=== PATIENT | male | born 1990 | race Caucasian/White ===

== ENCOUNTER 2020-06-25 11:08 | Emergency (ER) | payer SELFPAY ==
[2020-06-25 11:30] VITALS: PULSE 96; RESP 18; TEMP 36; O2SAT 98; BMI 39.5
[2020-06-25] MEDS: dexamethasone 4 mg/mL INJ 10 MG IM (12:29)
[2020-06-25] MEDS: ketorolac 30 mg/mL INJ IM (12:30)
[2020-06-25] MEDS: morphine 4 mg/mL SDV 1 mL 10 MG IM (12:30)
[2020-06-25 12:40] VITALS: BP 179/109; PULSE 88; RESP 18; O2SAT 98
[2020-06-25 13:40] VITALS: BP 177/116; PULSE 88; RESP 18; O2SAT 98
[2020-06-25] MEDS: hydroCHLOROthiazide 25 mg Tablet PO (14:31)
[2020-06-25 14:32] VITALS: BP 177/116; PULSE 88; RESP 18; O2SAT 98
--- NOTE | 2020-06-25 16:31 | DCPLANNER ---
manager military was asked to schedule a follow up appointment for patient with primary care, manager financial reporting and follow up with Dr. Osborne. manager military spoke with patient, he stated that he would like a primary care physician. manager military called [facility], spoke with Jayne, a follow up appointment was scheduled for June 30, 2020 at 8:[address] Velarde. manager military gave patient the appointment information. manager military gave patient both of the manager financial reporting applications for the hospital to fill out and turn back in. manager military called the ortho clinic, spoke with Cyndy, gave clinic patients information. manager military was told that patients information would be printed and reviewed. Clinic will call patient with appointment information.
--- NOTE | 2020-06-25 21:20 | ED_ITS ---
HPI - Back Pain/Injury General: Chief Complaint: Back Pain/Injury Stated Complaint: high bp and lower back pain Time Seen by Provider: 06/25/20 11:34 History of Present Illness: HPI Narrative: This patient is a 30-year-old male who presents with back pain. He said he was bent over at work yesterday and his back locked up. He has been having severe pain since then. It radiates down both legs. He has no numbness or weakness. No bladder or bowel incontinence. He is also concerned about his blood pressure which is elevated. He said he has been told he has high blood pressure but he is not a pill person and so did not take anything. He is also concerned because he does not have insurance to follow-up with any doctors. He showed me an MRI that he had 2 years ago. This showed some disc bulging and herniation at various levels including L4-5. MD elicited complaint: back pain Pertinent past history: prior back pain Onset (ago): day(s) (1) Timing: constant Severity: similar to previous episodes Similar Symptoms Previously: Yes Quality: dull and aching Location: lumbar spine Radiation: other (Bilateral legs) Exacerbating factors: movement Relieving factors: none Associated symptoms: Reports no associated symptoms; Deny abdominal pain, chills, fatigue, fever(s), nausea or vomiting Review of Systems General: Reports: 10 or more systems reviewed and unremarkable except in HPI and below Const: Denies: fever(s), chills, fatigue or malaise Eyes: Denies: change in vision ENMT: Denies: odynophagia Card: Denies: chest pain or swelling of feet/ankles Resp: Denies: dyspnea, productive cough or non-productive cough GI: Denies: abdominal pain, nausea or vomiting : Denies: flank pain Musc: Denies: neck pain or back pain Skin/Breast: Denies: rash Neuro: Denies: headache(s), numbness in extremities or weakness in extremities Gaetano/Lymph: Denies: easy bruising or easy bleeding Physical Exam Const: COMMON NORMALS: no acute distress, patient oriented x3, no limitations and alert GENERAL APPEARANCE: cooperative and comfortable HENMT: HEAD & SCALP: normal to inspection FACE & SINUS: normal facial exam Eye: GENERAL EYE: appearance normal, both eyes and all related structures Neck/C-Spine: COMMON NORMALS: supple, no meningeal signs and no JVD Chest: COMMONS NORMALS: normal inspection of the chest Resp: COMMON NORMALS: normal respiratory effort, No use of accessory muscles and clear to auscultation bilaterally AUSCULTATION: clear to auscultation bilaterally Cardio: COMMON NORMALS: no JVD, regular rate, regular rhythm and No murmurs present (Cardio) RATE: regular rate RHYTHM: regular rhythm GI: COMMON NORMALS: Normal to inspection, nondistended, normoactive bowel sounds present, Soft to palpation and non-tender INSPECTION: Yes normal to inspection AUSCULTATION: Yes normoactive bowel sounds PALPATION: Yes Soft to palpation Back/Pelvis: COMMON NORMALS: thoracic and lumbar spine normal to inspection Extremity: COMMON NORMALS: normal to inspection Neuro: COMMON NORMALS: patient oriented x3, moves all extremities, no focal motor deficits and no sensory deficits noted SENSORIUM/ORIENTATION: Yes alert and Yes other (Negative straight leg raise bilaterally) MENINGEAL SIGNS: Yes no meningeal signs SENSORY EXAM: Yes other (Normal) MOTOR EXAM: 5/5 motor strength present throughout DEEP TENDON REFLEXES: Right patellar reflex intensity grade: 2+ and Left patellar reflex intensity grade: 2+ Psych: COMMON NORMALS: mental status grossly normal, cooperative and normal affect Skin: COMMON NORMALS: no rashes or lesions noted and turgor normal GENERAL SKIN EXAM: no rashes or lesions noted and turgor normal Course ED course: Patient was treated for his back pain with morphine, Toradol, Decadron. Sent him home on hydrocodone and methylprednisolone Dosepak. I also put him on hydrochlorothiazide for high blood pressure. I have had our family caseworker talk with him about assistance with financial concerns, follow-up with primary care and follow-up with Dr. Osborne, orthospine. Patient was anxious about his elevated blood pressure and I reassured him that in the short-term I felt it was fine. We did discuss the long-term effects of uncontrolled blood pressure. He was given a work note. Vital Signs: Vital signs: Vital Signs Temperature 96.8 F L 06/25/20 11:30 Pulse Rate 88 06/25/20 14:32 Respiratory Rate 18 06/25/20 14:32 Blood Pressure 177/116 06/25/20 14:32 Pulse Oximetry 98 06/25/20 14:32 Discharge Plan Discharge Patient Disposition: Home Clinical Impression: Lumbar radiculopathy Hypertension Qualifiers: Hypertension type: unspecified Qualified Code(s): I10 - Essential (primary) hypertension Condition: Stable Prescriptions: New hydrochlorothiazide 25 mg tablet 25 mg PO DAILY Qty: 30 RF: 0 Medrol (Jim) 4 mg tablets,dose pack See Rx Instructions .ROUTE .COMPLEX Qty: 21 RF: 0 hydrocodone-acetaminophen 5-325 mg tablet 1 tab PO Q4H PRN (Reason: pain) Qty: 14 RF: 0 Discharge Orders: Discharge Order (Routine); Ordered 06/25/20 Ordered By: Valeria Lynch Referrals: Jessee Osborne DO [Physician] - (back pain, history of disc herniation) Discharge Diet: Usual diet Discharge Activity: Limit activity as instructed Patient Instructions: Chronic Hypertension (ED), Acute Low Back Pain (ED) Activity Restrictions/Additional Instructions: Return to the ED if uncontrolled pain, weakness or numbness in the legs, difficulty controlling bladder or bowel, or any other new or concerning symptoms. Coding Level of Care Code ED Wrecker Operator for Jose Luis Whittaker
--- NOTE | 2020-06-30 11:03 | DCPLANNER ---
Patient had a follow up appointment scheduled for 06.30.20 with [facility] - patient did attend appointment.
--- NOTE | 2020-07-07 09:33 | DCPLANNER ---
Patient has a follow up appointment for patient with ortho on Monday, July 13, 2020 at 10:[address] Osborne. Clinic will call patient with appointment information.
--- NOTE | 2020-07-20 15:15 | DCPLANNER ---
Patient had a follow up appointment scheduled f or 07.13.20 with ortho - patient did attend appointment.
== END 2020-06-25 14:32 | disposition home or self-care (01) ==
PROVIDERS: Emergency Provider Emergency Medicine
DX: M54.16 Radiculopathy, lumbar region (principal); I10 Essential (primary) hypertension
CPT/HCPCS: 12345; 96372; 99281; 99283; J1100; J1885; J2270

== ENCOUNTER → 2020-07-13 10:11 | Outpatient (BNVA) | payer SELFPAY | PROVIDERS: Visit Provider Orthopaedic Surgery | DX: M48.061 Spinal stenosis, lumbar region without neurogenic claudication (principal) | CPT/HCPCS: 72050; 72072; 72114 ==

== ENCOUNTER → 2020-07-14 09:51 | Outpatient (BNVA) | payer SELFPAY | PROVIDERS: PCP Family Medicine Adult Medicine; Visit Provider Family Medicine Adult Medicine | DX: I10 Essential (primary) hypertension (principal); E66.9 Obesity, unspecified | CPT/HCPCS: 80053; 83036; 84443; 85025 ==

== ENCOUNTER 2020-07-22 15:55 | Outpatient (CLI) | payer SELFPAY ==
--- NOTE | 2020-07-22 16:00 | MR_ITS ---
WS: [id number] MRI CERVICAL SPINE HISTORY: R52 - Pain, unspecified COMPARISON: None available. Normal cervical alignment with no compression fracture or significant disc space narrowing. Signal within the cervical cord is normal. Visualized posterior fossa is unremarkable. Craniocervical junction, C1 and C2 relationship, odontoid process and soft tissues are normal. C2-C3: Small vertebral body osteophytes encroach into the LEFT foramen with only minimal narrowing. C3-C4: Mild annular disc bulging and osteophytic ridging without stenosis. C4-C5: Mild annular disc bulging and osteophytic ridging with a very small central disc protrusion. N o stenosis. C5-C6: Mild annular disc bulging and osteophytic ridging. There is a very tiny central disc protrusio n extending slightly to the RIGHT. No significant stenosis. C6-C7: Mild osteophytic ridging. No significant stenosis. C7-T1: Mild osteophytic ridging. No stenosis. Paraspinal soft tissue are normal. MR/MR cervical spin wo con* [id number] IMPRESSION: 1. No significant central or foraminal stenosis. 2. Multilevel small vertebral body osteophytes encroaching into the foramen. N o high-grade stenosis.
--- NOTE | 2020-07-22 16:45 | MR_ITS ---
WS: [id number] MRI LUMBAR SPINE NONCONTRAST HISTORY: M48.061 - Spinal stenosis, lumbar region without neurogenic claudication COMPARISON: None available. TECHNIQUE: Sagittal and axial multisequence imaging is submitted. Mild increase in thoracic kyphosis centered at the T5-6 level. All the anterior wedging of T6. Mild straightening of the normal lumbar vertebral bodies. Disc spaces and vertebral body heights are well-preserved. Conus terminates normally at mid L1. L1-L2: Normal. L2-L3: Normal. L3-L4: Normal. L4-L5: Small amount of fluid in the facet joints. No stenosis. L5-S1: Small amount of fluid in the facet joints. No stenosis. Paravertebral soft tissues are negative. MR/MR lumbar spine wo con* [id number] IMPRESSION: 1. No significant central or foraminal stenosis or disc protrusions in the lum bar spine. 2. Small amount of fluid in the facet joints at L4-5 and L5-S1.
== END 2020-07-22 15:56 | disposition home or self-care (01) ==
LOC: RADSHAW 15:58
PROVIDERS: PCP Family Medicine Adult Medicine; Visit Provider Orthopaedic Surgery
DX: M54.2 Cervicalgia (principal); M48.061 Spinal stenosis, lumbar region without neurogenic claudication
CPT/HCPCS: 72141; 72148

== ENCOUNTER → 2020-08-26 08:35 | Outpatient (BNVA) | payer SELFPAY | PROVIDERS: PCP Family Medicine Adult Medicine; Visit Provider Anesthesiology Pain Medicine | DX: M47.816 Spondylosis without myelopathy or radiculopathy, lumbar region (principal); M54.9 Dorsalgia, unspecified; M50.90 Cervical disc disorder, unspecified, unspecified cervical region; M54.6 Pain in thoracic spine | CPT/HCPCS: 99205 ==

== ENCOUNTER → 2020-08-27 12:36 | Outpatient (BNVA) | payer SELFPAY | PROVIDERS: PCP Family Medicine Adult Medicine; Visit Provider Anesthesiology Pain Medicine | DX: M47.816 Spondylosis without myelopathy or radiculopathy, lumbar region (principal); M54.9 Dorsalgia, unspecified | CPT/HCPCS: 64493; 64494; 64495; J1030; J3490 ==

== ENCOUNTER 2020-12-08 20:00 | Outpatient (CLI) | payer SELFPAY | END 2020-12-08 20:01 | disposition home or self-care (01) | LOC: SLEEP 12-09 09:56 | PROVIDERS: PCP Family Medicine Adult Medicine; Visit Provider Family Medicine Adult Medicine | DX: G47.33 Obstructive sleep apnea (adult) (pediatric) (principal); Z99.89 Dependence on other enabling machines and devices; E66.9 Obesity, unspecified | CPT/HCPCS: 95811 ==

== ENCOUNTER → 2021-03-02 11:55 | Outpatient (BNVA) | payer MEDICAID, SELFPAY | PROVIDERS: PCP Family Medicine Adult Medicine; Referring Provider Family Medicine Adult Medicine; Visit Provider Internal Medicine Cardiovascular Disease | DX: N18.9 Chronic kidney disease, unspecified (principal); R06.02 Shortness of breath; R06.00 Dyspnea, unspecified | CPT/HCPCS: 80048; 84443 ==

== ENCOUNTER 2021-03-30 07:58 | Outpatient (CLI) | payer MEDICAID, SELFPAY ==
--- NOTE | 2021-03-30 08:05 | USCV_ITS ---
[facility] Age: 30 Gender: M : 1990 Exam Date: 03/30/2021 08:31 Ordering Phys: Rachel Butler MD ([email or web address]) Technologist: Lilly Silverio Exam Location: [facility] – [place] Indication: DYSPNEA BP: 170 / 80 HR: 76 Rhythm: Sinus Technical Quality: Adequate MEASUREMENTS (Male / Female) Normal Values 2D ECHO LV Diastolic Diameter PLAX 4.9 cm 4.2 - 5.9 / 3.9 - 5.3 cm LV Systolic Diameter PLAX 2.7 cm IVS Diastolic Thickness 2.1 cm 0.6 - 1.0 / 0.6 - 0.9 cm IVS Systolic Thickness 2.9 cm LVPW Diastolic Thickness 1.9 cm 0.6 - 1.0 / 0.6 - 0.9 cm LVPW Systolic Thickness 2.8 cm LVOT Diameter 2.0 cm LV Ejection Fraction 2D Teich 74.9 % LV Ejection Fraction MOD 2C 64.5 % LV Ejection Fraction 2C AL 66.1 % LA Diameter 4.7 cm LA Width 4.5 cm LA Height 6.0 cm RA Width 3.5 cm RA Height 5.8 cm Aorta at Sinotubular Diameter 2.5 cm DOPPLER AV Peak Velocity 149.0 cm/s LVOT Peak Velocity 80.0 cm/s AV Area Cont Eq vti 1.7 cm squared AV Area Cont Eq pk 1.7 cm squared MV Area PHT 4.2 cm squared Mitral E to A Ratio 1.3 MV E' Velocity 56.0 cm/s Mitral E to MV E' Ratio 13.2 Mitral E to LV E' Lateral Ratio 13.0 Mitral E to LV E' Septal Ratio 13.4 TR Peak Velocity 418.0 cm/s TR Peak Gradient 69.9 mmHg TV Peak E Velocity 67.0 cm/s PV Peak Velocity 100.0 cm/s RV Acceleration Time 0.1 s RV Ejection Time 0.3 s RV AcT/ET 0.4 FINDINGS Left Ventricle Normal left ventricular size and systolic function, EF 72 %. Moderate left ventricular hypertrophy. No regional wall motion abnormalities. Right Ventricle The right ventricle is normal in size and function. Right Atrium The right atrium is normal in size. Left Atrium Mildly increased left atrial size. Mitral Valve No gross abnormalities noted Aortic Valve Mild aortic valve regurgitation. Tricuspid Valve Trace tricuspid valve regurgitation. Pulmonic Valve Pulmonic valve not well visualized. Pericardium Normal pericardium without effusion. Aorta Normal ascending aorta dimension. CONCLUSIONS Normal left ventricular size and systolic function, EF 72 %. Moderate left ventricular hypertrophy. No regional wall motion abnormalities. Type III diastolic dysfunction. Mild aortic valve regurgitation. Trace tricuspid valve regurgitation. There is no pericardial effusion. There are no intracardiac masses. Technically difficult study because of the poor ultrasonic window. Dr Rachel Butler MD FACC (Electronically Signed) Final Date: 30 March 2021 23:05 S
== END 2021-03-30 07:59 | disposition home or self-care (01) ==
PROVIDERS: PCP Family Medicine Adult Medicine; Visit Provider Internal Medicine Cardiovascular Disease
DX: R06.00 Dyspnea, unspecified (principal); I08.2 Rheumatic disorders of both aortic and tricuspid valves
CPT/HCPCS: 93306

== ENCOUNTER → 2021-04-07 15:20 | Outpatient (BNVA) | payer MEDICAID, SELFPAY | PROVIDERS: PCP Family Medicine Adult Medicine; Visit Provider Orthopaedic Surgery | DX: Z20.822 Contact with and (suspected) exposure to COVID-19 (principal); Z01.812 Encounter for preprocedural laboratory examination | CPT/HCPCS: 87635 ==

== ENCOUNTER 2021-04-13 05:44 | Day surgery (SDC) | payer MEDICAID, SELFPAY ==
[2021-04-06 11:08] VITALS: BMI 38.5
--- NOTE | 2021-04-06 12:18 | ANES.PREANE2 ---
Pre-Anesthetic Assessment Pre-Anesthetic Assessment: Height/Weight: Height 1.88 m Weight 136.078 kg Preop Diagnosis: lumbar stenosis Proposed Procedure: Operation Date: 04/13/21 13:15 Proposed Procedures p 35895 lumbar decompression M48.062(Not Applicable) - Jessee Osborne, DO Was Beta Daysi taken within 24 hours: N/A Was Clonidine taken within 24 hours: N/A Social: Social History: No alcohol and No tobacco Airway: Submandibular: WNL Cervical ROM: WNL MP: 1 Dentition: Full History/ROS: No significant complaints Pulmonary: Pulmonary: None reported CV/HEM: CV/HEM: HTN : : None reported Hepatic: Hepatic: None reported GI: GI: None reported Metabolic: Metabolic: None reported Musc/skel: Musc/skel: None reported Neuropsych: Neuropsych: None reported Anesthetic Plan: ASA status: 2 Anesthesia: Anesthesia Evaluation and General Risk of > 500 ml blood loss (7ml/kg in children): No PFSH Anesthesia PFSH: Medical History Abnormal EKG Atypical chest pain Cervical disc disease Chronic neck and back pain Fever Herniated disc History of seizures Hypertension Obesity (BMI 35.0-39.9 without comorbidity) AURY on CPAP Surgical History No history of previous surgery Family History Other No pertinent family history Denies family history of Diabetes CAD (coronary artery disease) Clotting disorder Dementia Chronic kidney disease (CKD) Suicide Anesthesia complication Bleeding disorder Lung disease Cancer Stroke Social History Alcohol intake: never Marital status: Number of children: 3 Current occupational status: unemployed and previously employed History of recent travel: No Current gender identity: Male Data Anesthesia Cardiac Studies: Echocardiogram 03/30/21
[2021-04-13] VITALS (10 sets, daily range): BP systolic 133–182; BP diastolic 79–98; PULSE 53–69; RESP 14–19; TEMP 36.2–36.7; O2SAT 94–100
--- NOTE | 2021-04-13 | XR_ITS ---
WS: [id number] Lumbar spine, C-arm fluoroscopy, 04/13/2021 Clinical Data: lumbar decompression Comparison: None. Findings: Dr. Osborne performed a lumbar decompression at L4-L5. XR/XR lumbar spine 1V [id number] Impression: L4-L5 decompression.
--- NOTE | 2021-04-13 | SCC_ITS ---
Procedure Done: Bilateral L4/5 laminectomy with partail facetectomy 8.7 seconds of fluoroscopic guidance, for a cumulative dose of 4.96 mGy, was provided to Dr. Osborne by the radiology department. C-arm images of the lumbar spine were saved for the patient's permanent record. [facility]ITAL[facility]ox[facility]
[2021-04-13] MEDS: sodium chloride 0.9% 1,000 ML 30 ML IV (06:21)
--- NOTE | 2021-04-13 06:26 | P.ANESUD_ITS ---
Pre-Anesthetic Update Pre-Anesthetic Assessment: Date of Surgery/Procedure: 04/13/21 Preop Lorelei gnosis: lumbar stenosis Proposed Procedure: Operation Date: 04/13/21 07:00 Proposed Procedures p [id number] lumbar decompression M48.062(Not Applicable) - Jessee Osborne, DO Any changes to Pre-Anesthetic Assessment?: No Last Intake: Intake Last Liquid Date 04/12/21 Last Liquid Time 23:59 Last Solid Date 04/12/21 Last Solid Time 19:00 Vitals: Temperature 97.1 F L 04/13/21 06:08 Temperature Source Temporal Artery S can 04/13/21 06:08 Pulse Rate 65 04/13/21 06:08 Respiratory Rate 16 04/13/21 06:08 Blood Pressure 133/98 04/13/21 06:08 Blood Pressure Tamara n 109 04/13/21 06:08 Pulse Oximetry 97 04/13/21 06:08 Oxygen Delivery Me thod 04/13/21 06:08 Exam: Pre-Anes Outpt Exam: alert, oriented x 3, clear to auscultation bilaterally and regular rate & rhythm Other Pertinent Information: Other Pertinent Information: Did not bring his biPap with him. Also states family hx of high tolerance to anesthesia. Cardiac Studies: Echocardiogram 03/30/21
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
--- NOTE | 2021-04-13 08:15 | PM.OP ---
Operative Report Date of procedure: April 13, 2021 Pre-op Diagnosis: lumbar stenosis Post-op diagnosis: same Procedure Done: Bilateral L4/5 laminectomy with partail facetectomy Surgeon: Jessee Osborne Anesthesia: General Estimated blood loss (mL): 5 Condition: stable Procedure: Patient is brought to the operative suite. After undergoing anesthesia they are placed in the supine position. All areas of impingement are well padded. Patient is then prepped and draped in the normal sterile fashion. A skin incision is made over the L4/5 level. This is confirmed under c-arm guidance. A series of dilators are passed and the tubular retractor is docked on the L4 lamina. A bovie is used to clear the soft tissue off the lamina and the L 4/5 facet joint. A high speed dee is then used to perform the laminectomy and take down the medial aspect of the L 4/5 facet joint. A kerrison rongeure was then used to take down the remaining lamina and smooth the edged of the laminectomy up to the point where the ligamentum flavum attaches. Attention was then brought to the medial aspect of the facet joint. The remaining medial aspect of the superior and inferior aspect of the facet joint were taken down with the kerrison from the pedicle of L4 to L 5. The facet joint had significant hypertrophy. Attention was then brought to the Ligamentum Flavum. The ligament was taken down from the lamina of L4 to L5 and out medially to the remaining facet joint. The ligament was thick. The dura was then exposed. The dura was in good repair. The L4 nerve was then traced with a curette out the L4/5 foramen and found to be adequately decompressed. The L5 nerve was traced with a curette around the L5 pedicle. The lateral recess was opened with a kerrison helping to further decompress the L5 nerve. The tubular retractor was then tilted to the contralateral side. The bovie was used to take down the soft tissue on the spinous process. The high speed dee was used to take down the spinous process and then the contralateral lamina of L4. The kerrison rongeur was used to take down the remaining lamina to the point where the ligamentum flavum attached and the ligamentum flavum was taken down from L4 to L5. The kerrison rongeur was then used to reach across and take down the medial aspect of the contralateral L4/5 facet joint.The currete was used to trace the contralateral L4 nerve out the L4/5 foramen to make sure it was decompressed adequatesly and the L5 was traced around the L5 pedicle. The lateral recess was opened further with the kerrison to ensure the L5 is adequately decompressed. Wound is then irrigated copiously with saline and surgiflo is used to stop any bleeding. The tubular retractor is removed and the wound is closed with vicryl and monocryl suture. Glue is then used to protect the wound. A sterile dressing is then placed. Patient was then placed in the supine position and transferred to the PACU in stable condition.
[2021-04-13] MEDS: fentaNYL 50 mcg/mL INJ 2mL IVP (08:46)
[2021-04-13] MEDS: HYDROcodone-acetaminophen 5-325 mg Tablet 1 TAB PO (09:14)
[2021-04-13] MEDS: ondansetron 2 mg/ML SDV 2 mL 4 MG IVP (09:35)
--- NOTE | 2021-04-13 13:58 | ANE.PACU2 ---
Inpatient post-anesthesia follow up: Airway intact: Yes Vital signs: Temperature 98 F Pulse Rate 61 Respiratory Rate 17 Blood Pressure 137/79 Pulse Oximetry 96 Oxygen Delivery Me thod Room Air Oxygen Flow Rate 8 Fraction of Inspir ed Oxygen Hydration adequate: Yes Nausea and vomiting: No Pain level: 2 Mental status: Baseline
== END 2021-04-13 10:00 | disposition home or self-care (01) ==
PROVIDERS: PCP Family Medicine Adult Medicine; Visit Provider Orthopaedic Surgery
PROC: (CPT 63005; principal; 2021-04-13 07:00)
DX: M48.062 Spinal stenosis, lumbar region with neurogenic claudication (principal); I10 Essential (primary) hypertension; G47.33 Obstructive sleep apnea (adult) (pediatric); E66.9 Obesity, unspecified; Z68.38 Body mass index [BMI] 38.0-38.9, adult
CPT/HCPCS: 63047; 72020; 76000; 96374; J0690; J1100; J2405; J2704; J2710; J3010; J3490; J7030

== ENCOUNTER → 2021-08-30 08:59 | Outpatient (BNVA) | payer MEDICAID, SELFPAY | PROVIDERS: PCP Family Medicine Adult Medicine; Visit Provider Physician Assistant | DX: M48.062 Spinal stenosis, lumbar region with neurogenic claudication (principal); M41.86 Other forms of scoliosis, lumbar region; M47.816 Spondylosis without myelopathy or radiculopathy, lumbar region | CPT/HCPCS: 72110 ==

== ENCOUNTER 2021-09-20 20:00 | Outpatient (CLI) | payer MEDICAID, SELFPAY | END 2021-09-20 20:01 | disposition home or self-care (01) | LOC: SLEEP 09-21 05:56 | PROVIDERS: PCP Family Medicine Adult Medicine; Visit Provider Nurse Practitioner Family | DX: G47.33 Obstructive sleep apnea (adult) (pediatric) (principal); Z99.89 Dependence on other enabling machines and devices | CPT/HCPCS: 95811 ==

== ENCOUNTER 2021-09-29 15:50 | Outpatient (CLI) | payer MEDICAID, SELFPAY ==
--- NOTE | 2021-09-29 16:00 | CTR_ITS ---
PROCEDURE INFORMATION: Exam: CTA Chest With Contrast Exam date and time: 09/29/2021 4:00 PM Age: 31 years old Clinical indication: Condition or disease; Other: Subclavian stenosis TECHNIQUE: Imaging protocol: Computed tomographic angiography of the chest with contrast. 3D rendering (Not supervised by radiologist): MIP reconstructed images were created by the technologist. Radiation optimization: All CT scans at this facility use at least one of these dose optimization techniques: automated exposure control; mA and/or kV adjustment per patient size (includes targeted exams where dose is matched to clinical indication); or iterative reconstruction. Contrast material: OMNI 350; Contrast volume: 95 ml; Contrast route: INTRAVENOUS (IV); COMPARISON: CR Chest 1 [place] [id number] 04/27/2019 10:00 AM RADIATION DOSE METRICS: Total DLP (mGy-cm): 1417.98 FINDINGS: Pulmonary arteries: Normal. No pulmonary emboli. Aorta: Coarctation of the proximal descending thoracic aorta, measuring approximately 13.2 x 10.5 mm minimal cross-sectional luminal diameter. Extensive vascular collaterals of the upper descending thoracic aorta and paraspinous upper thoracic vessels communicating with proximal bilateral subclavian artery branches. Prominent bilateral internal thoracic arteries. Other arteries: Fusiform aneurysm brachiocephalic artery, measuring 2.6 cm. 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 Fusiform ectasia proximal left axillary artery measuring 13.8 mm. Thyroid: The bilateral thyroid lobes are unremarkable. Lungs: Unremarkable. Pleural spaces: No pneumothorax. No pleural effusion. Heart: Cardiac left ventricular enlargement. Asymmetric cardiac left ventricular basilar septal hypertrophy, measuring 2.7 cm, the lateral ventricular basilar free wall measures 16.1 mm. Lymph nodes: No enlarged lymph nodes. Bones/joints: Mild undersurface scalloping of bilateral posterior upper ribs. Mild rightward midthoracic spinal curvature. Right anterolateral T4-5 vertebral body marginal osteophytes. Soft tissues: Unremarkable. CT/CT angio chest [id number] IMPRESSION: 1. Coarctation of thoracic aorta. 2. Brachiocephalic, left subclavian axillary fusiform ectasia secondary to the above. 3. Cardiac left ventricular enlargement. 4. Asymmetric cardiac left ventricular septal hypertrophy.
[2021-09-29] MEDS: iohexol 350 mg/mL 100 mL Btl IV (16:20)
--- NOTE | 2021-10-12 22:27 | PM.MISC ---
Miscellaneous Note Purpose of Documentation: CTA report from 09/30/2021 Note: Patient is found to have features of aortic coarctation. The findings and implications were discussed with the patient in detail. view of his uncontrolled blood pressure, he may benefit from percutaneous/surgical intervention. All the questions were answered to his satisfaction. Patient also had a CPAP titration. This also was discussed with patient. Patient is wanting to go ahead with the referral for the management of his coarctation. I contacted Dr. Franco at the [facility] and discussed the case. Dr. Franco is going to review the CTA with the interventional team and will get back with me. Also will make arrangements for him to be seen by Dr. Franco.
== END 2021-09-29 15:51 | disposition home or self-care (01) ==
LOC: RAD 15:54
PROVIDERS: PCP Family Medicine Adult Medicine; Visit Provider Nurse Practitioner Family
DX: I35.1 Nonrheumatic aortic (valve) insufficiency (principal); I10 Essential (primary) hypertension; Q25.1 Coarctation of aorta; I51.7 Cardiomegaly
CPT/HCPCS: 71275

== ENCOUNTER → 2021-10-31 09:27 | Outpatient (BNVA) | payer MEDICAID, SELFPAY | PROVIDERS: PCP Family Medicine Adult Medicine; Visit Provider Podiatrist Foot & Ankle Surgery | DX: M79.671 Pain in right foot (principal); L08.9 Local infection of the skin and subcutaneous tissue, unspecified | CPT/HCPCS: 73630 ==

== ENCOUNTER → 2021-11-21 10:16 | Outpatient (BNVA) | payer MEDICAID, SELFPAY | PROVIDERS: PCP Family Medicine Adult Medicine; Visit Provider Podiatrist Foot & Ankle Surgery | DX: Z98.890 Other specified postprocedural states (principal) | CPT/HCPCS: 99213 ==

== ENCOUNTER → 2021-12-28 09:04 | Outpatient (BNVA) | payer MEDICAID, SELFPAY | PROVIDERS: PCP Family Medicine Adult Medicine; Visit Provider Podiatrist Foot & Ankle Surgery | DX: Z98.890 Other specified postprocedural states (principal); M79.673 Pain in unspecified foot | CPT/HCPCS: 99213 ==

== ENCOUNTER 2021-12-30 17:11 | Emergency (ER) | payer MEDICAID, SELFPAY ==
[2021-12-30] VITALS (8 sets, daily range): BP systolic 137–188; BP diastolic 75–94; PULSE 54–77; RESP 14–20; TEMP 37.2; O2SAT 95–100; BMI 38.2
--- NOTE | 2021-12-30 17:32 | XRR_ITS ---
PROCEDURE INFORMATION: Exam: XR Chest Exam date and time: 12/30/2021 5:55 PM Age: 31 years old Clinical indication: Chest wall pain; Prior surgery; Surgery date: 1-6 months; Surgery type: Open heart; Additional info: Chest pain TECHNIQUE: Imaging protocol: XR of the chest. Views: 1 view. COMPARISON: CT angio chest [id number] 09/29/2021 4:11 PM FINDINGS: Lungs: Curvilinear atelectasis at the left lung base. Pleural spaces: No evident pleural effusion. No pneumothorax. Heart/Mediastinum: Sequela of cardiothoracic surgery with sternotomy wires. Mild cardiomegaly. Bones/joints: Unremarkable. XR/XR chest 1V portable [id number] IMPRESSION: Mild cardiomegaly. Atelectasis at the left lung base.
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
[2021-12-30 18:32] LABS: Basophils # 0.1 10^3/uL (0.0-0.1); Basophils % 1.1 %; Eosinophils # 0.6 10^3/uL (0.0-0.8); Hematocrit 38.4 % (42.0-52.0); Hemoglobin 11.9 g/dL (11.7-16.6); Lymphocytes # 1.9 10^3/uL (0.8-4.8); Lymphocytes % 34.8 %; Mean Corpuscular Hemoglobin 24.6 pg (28.0-34.0); Mean Corpuscular Volume 79.3 fl (80-94); Mean Platelet Volume 9.5 fL (7.4-10.4); Monocytes # 0.4 10^3/uL (0.2-0.9); Monocytes % 7.4 %; Neutrophils # 2.54 10^3/uL (1.8-7.7); Neutrophils % 45.5 %; Nucleated Red Blood Cells % 0 %; Platelet Count 284 10^3/cmm (130-400); Red Blood Count 4.84 10^6/uL (4.1-5.3); Red Cell Distribution Width 15.6 % (12.1-15.1); White Blood Count 5.6 10^3/uL (4.0-10.0)
[2021-12-30] MEDS: ondansetron 2 mg/ML SDV 2 mL 4 MG IVP (18:39)
[2021-12-30] MEDS: morphine 4 mg/mL SDV 1 mL IVP (18:39)
--- NOTE | 2021-12-30 18:44 | PC.NURSE ---
Pt placed on continuous cardiac, BP, and SpO2 monitoring upon arrival into room.
[2021-12-30 18:54] LABS: Troponin(5th) Baseline 14 ng/L (0-15)
[2021-12-30 19:01] LABS: Blood Urea Nitrogen 14 mg/dL (6-20); Calcium 9.7 mg/dL (8.5-10.5); Carbon Dioxide 27 mmol/L (22-29); Creatinine Clr Calc Pharmacy 152.2318; Glomerular Filtration Rate 87.2 mL/min (90-130); Glucose 102 mg/dL (65-115); NT Pro B Type Natriuretic Pept 500 pg/mL (0-125)
[2021-12-30 19:12] LABS: Anion Gap 15.5 (5-19); Chloride 103 mmol/L (98-107); Osmolality Calculated 293 mOsm/kg (285-295); Potassium 4.5 mmol/L (3.5-5.1); Sodium 141 mmol/L (136-145)
[2021-12-30] MEDS: cloNIDine 0.1 mg Tablet PO (19:17)
--- NOTE | 2021-12-30 19:32 | ECG_ITS ---
[facility] Test Date: 2021-12-30 Pat Name: Fawn Charles Department: Room: Gender: Male Cooker Chip: : [id number] Requested By: Natacha Parker Order Number: [id number] Topher MD: Rachel Butler M.D. Measurements Intervals Cedar Rate: 53 P: 11 MT: 204 QRS: -30 QRSD: 117 T: 144 QT: 463 QTc: 437 Interpretive Statements SINUS BRADYCARDIA BORDERLINE LEFT AXIS DEVIATION [QRS AXIS < -20] MODERATE INTRAVENTRICULAR CONDUCTION DELAY [110+ ms QRS DURATION] ST DEVIATION AND MODERATE T-WAVE ABNORMALITY, CONSIDER LATERAL ISCHEMIA [-0.1+ mV T-WAVE IN I/aVL/V5/V6] Compared to ECG 04/27/2019 10:03:58 Intraventricular conduction delay now present Sinus rhythm no longer present Incomplete right bundle-branch block no longer present Left anterior fascicular block no longer present Myocardial infarct finding no longer present T-wave abnormality still present Possible ischemia still present Electronically Signed On 12-30-2021 22:28:55 CDT by Rachel Butler M.D. [email or web address]
[2021-12-30 20:51] LABS: Troponin 5 2HR 13.43 ng/L (0-15)
== END 2021-12-30 22:31 | disposition home or self-care (01) ==
PROVIDERS: Emergency Medicine; Emergency Provider Physician Assistant; PCP Family Medicine Adult Medicine
DX: R07.89 Other chest pain (principal); Z98.890 Other specified postprocedural states
CPT/HCPCS: 71045; 80048; 83880; 84484; 85025; 93005; 96374; 96375; 99285; J2270; J2405

== ENCOUNTER → 2022-02-13 13:57 | Outpatient (BNVA) | payer MEDICAID, SELFPAY | PROVIDERS: PCP Family Medicine Adult Medicine; Visit Provider Registered Nurse Neonatal Intensive Care | DX: S89.91XA Unspecified injury of right lower leg, initial encounter (principal); W50.0XXA Accidental hit or strike by another person, initial encounter; M25.561 Pain in right knee | CPT/HCPCS: 73562 ==

== ENCOUNTER → 2022-02-21 13:06 | Outpatient (BNVA) | payer MEDICAID, SELFPAY | PROVIDERS: PCP Family Medicine Adult Medicine; Referring Provider Registered Nurse Neonatal Intensive Care; Visit Provider Physician Assistant | DX: S89.90XA Unspecified injury of unspecified lower leg, initial encounter (principal); W19.XXXA Unspecified fall, initial encounter | CPT/HCPCS: 73560; 73565; 99213 ==

== ENCOUNTER → 2022-03-29 11:46 | Outpatient (BNVA) | payer MEDICAID, SELFPAY | PROVIDERS: PCP Family Medicine Adult Medicine; Visit Provider Family Medicine Adult Medicine | DX: E83.42 Hypomagnesemia (principal); G57.93 Unspecified mononeuropathy of bilateral lower limbs; M50.90 Cervical disc disorder, unspecified, unspecified cervical region; M54.9 Dorsalgia, unspecified; G89.29 Other chronic pain; G47.33 Obstructive sleep apnea (adult) (pediatric); Z98.890 Other specified postprocedural states; I10 Essential (primary) hypertension | CPT/HCPCS: 83735 ==

== ENCOUNTER → 2022-06-06 13:02 | Outpatient (BNVA) | payer MEDICAID, SELFPAY | PROVIDERS: PCP Family Medicine Adult Medicine; Visit Provider Internal Medicine Cardiovascular Disease | DX: R06.02 Shortness of breath (principal); E87.6 Hypokalemia | CPT/HCPCS: 80048; 83880 ==

== ENCOUNTER 2023-07-10 18:30 | Emergency (ER) | payer MEDICAID, SELFPAY ==
--- NOTE | 2023-07-10 18:38 | XRR_ITS ---
PROCEDURE INFORMATION: Exam: XR Chest Exam date and time: 07/10/2023 6:44 PM Age: 33 years old Clinical indication: Pain; Chest pressure; Prior surgery; Surgery date: 6+ months; Surgery type: Open heart; Additional info: Cp TECHNIQUE: Imaging protocol: Radiologic exam of the chest. Views: 1 view. COMPARISON: CR XR chest 1V portable [id number] 12/30/2021 5:55 PM FINDINGS: Lungs: Visualized portions of the lungs are clear. Pleural spaces: Unremarkable. No pleural effusion. No pneumothorax. Heart/Mediastinum: The heart is mildly enlarged. Bones/joints: Sternotomy wires and mediastinal surgical clips are present, consistent with coronary arterial bypass grafting. XR/XR chest 1V portable [id number] IMPRESSION: No acute infiltrate.
[2023-07-10 19:08] VITALS: BP 185/93; PULSE 77; RESP 18; TEMP 36.7; O2SAT 97; BMI 42.3
--- NOTE | 2023-07-10 19:40 | ED_ITS ---
HPI - Extremity Problem General: Chief complaint: Extremity Injury, Upper Stated complaint: thorasic pain, Time Seen by Provider: 07/10/23 19:30 History of Present Illness: 33-year-old male presents emergency depa rtment with complaints of an intermittent popping to the right side of his chest and pain that was a sharp stabbing pain that was a 4 out of 10 that started after he picked up his son. He states that he has a history of coarctation of the aorta with Dacron graft repair approximately 1 year ago. He states has been doing fine since that time. His blood pressures been well-controlled. He denies shortness of breath or additional chest pain. Review of Systems General: Reports: 10 or more systems reviewed and unremarkable except in HPI and below Musc: Reports: other (Chest wall muscle pain) [facility] ED PFSH: Medical History Acute atopic conjunctivitis Cervical disc disease Chronic neck and back pain Coarctation of aorta History of seizures Hypertension Hypomagnesemia Lumbar spondylosis Neuropathic pain, leg, bilateral Obesity (BMI 35.0-39.9 without comorbidity) AURY treated with BiPAP Surgical History History of back surgery No history of previous surgery S/P matrixectomy of toe S/P matrixectomy of toe S/P matrixectomy of toe Status post aortic arch reconstruction Family History Other No pertinent family history Denies family history of Diabetes CAD (coronary artery disease) Clotting disorder Dementia Chronic kidney disease (CKD) Suicide Anesthesia complication Bleeding disorder Lung disease Cancer Stroke Social History Smoking and tobacco/nicotine status: never used tobacco/nicotine Second hand smoke exposure: No Alcohol intake: never Substance/Drug Use: never Caregiver/support person: Yes Lives independently: Yes Household members: spouse and family Marital status: Number of children: 3 Highest education level completed: Some College, No Degree service: No Current occupational status: unemployed and previously employed Pets and animals: No Do you think of yourself as: Straight/Heterosexual Current gender identity: Male Physical Exam Narrative: EXAM NARRATIVE: Constitutional: the patient appears well nourished and with normal development. Vital signs reviewed as documented. HENMT: Normocephalic, atraumatic. Extermal ears with normal appearance without drainage. Nose without drainage, normal appearance. Mucus membranes moist. Neck is supple, No jugular venous distension, trachea is midline, no appreciable carotid bruits. No lymphadenopathy. No meningeal signs. Flexion, extension and lateral rotation is without pain. Eyes: Pupils are equal, round, reactive to light and accommodation. No scleral icterus. Extra-ocular movement are intact. Thorax is symmetrical and with equal rise and fall with respirations. Resp: Lungs are clear to auscultation. No wheezes, rales, crackles or ronchi at present. Cardio: Regular rate and rhythm. Positive S1, S2. No appreciable murmurs, rubs or gallops. GI: Abdominal exam reveals normal bowel sounds to all quadrants. No organomegaly. No obvious palpable masses noted. No hepatomegally appreciated. Soft, nontender to palpation. Extremity: Extremities are non-edematous and both femoral and pedal pulses are 2+ and equal bilaterally. Moves all extremities well, sensation in all extremities. Neuro: Alert and oriented x4, person, place, time and situation. Cranial nerves II through XII are grossly intact, there is no focal neurological deficits that I can appreciate at present. Motor strength in the upper and lower extremities are equal and bilateral 5/5. Psych: Cooperative, calm, normal thought process, appropriate judgment. Skin: No lesions, rashes. No gross abnormalities noted. Back: Symmetrical, no obvious deformity, No CVA tenderness Course Vital Signs: Vital signs: Vital Signs Temperature 98.1 F 07/10/23 20:34 Pulse Rate 77 07/10/23 20:34 Respiratory Rate 18 07/10/23 20:34 Blood Pressure 185/93 07/10/23 20:34 Pulse Oximetry 97 07/10/23 20:34 Oxygen Delivery Me thod Room Air 07/10/23 19:08 MDM - Extremity (Nontraumatic) Medical Decision Making Physical exam completed and documented, I had extensive discussion with the patient regarding his previous medical records as well as previous medical pathology and discussed supportive care and treatment. Medical Records I reviewed the patient's medical records. Lab Data Radiology Impressions Chest X-Ray 07/10/23 18:38 IMPRESSION: No acute infiltrate. All radiology interpretation(s) finalized by discharge Discharge Plan Discharge Patient Disposition: Home Clinical Impression: Muscle strain of anterior chest wall Condition: Stable Prescriptions: No Action echinacea [Echinacea Herb] PO vitamin B complex [B Complex-Vitamin B12] 1 tab PO BID tumeric PO goldenseal PO capsicum (cayenne) PO DAILY PRN amoxicillin 500 mg tablet 500 mg PO TID 10 Days Qty: 30 0RF ibuprofen 800 mg tablet 800 mg PO Q8H PRN (Reason: pain) Qty: 20 0RF (DME) Bipap, heated humidifer, and supplies. See Rx Instructions .Route .MEDSUPPLY Qty: 1 0RF Rx Instructions: As directed (DME) Auto-titrating CPAP & Supplies See Rx Instructions .Route .MEDSUPPLY Qty: 1 0RF Rx Instructions: As directed, Auto titrating range is 10-16 with the optimal pressure was 15. magnesium oxide 400 mg (241.3 mg magnesium) tablet 400 mg PO BID Qty: 60 5RF potassium chloride 8 mEq tablet extended release 8 meq PO DAILY Qty: 30 5RF metoprolol tartrate [Lopressor] 50 mg tablet 25 mg PO BID Qty: 90 1RF ketoconazole 2 % shampoo 1 applic topical DAILY Qty: 120 5RF Rx Instructions: apply to wet hair. Lather, soak into the scalp 5 min rinse use daily for two weeks Eliquis 5 mg tablet 5 mg PO BID Qty: 60 0RF clonidine HCl 0.1 mg tablet 0.1 mg PO BID Qty: 60 0RF oxycodone 10 mg tablet 10 mg PO Q12H PRN (Reason: pain) 30 Days Qty: 60 0RF Rx Instructions: refill On or after 30 day intervals Discharge Orders: Discharge ED (Routine); Ordered 07/10/23 Ordered By: Goyo Cabrera Referrals: Chucky Velarde MD [Primary Care Provider] - Discharge Diet: Advance as tolerated Discharge Activity: Resume usual activity Patient Instructions: Opioid Safety, Pain Management Activity Restrictions/Additional Instructions: Activity Restrictions/Additional Instructions: Thank you for choosing [facility] for your healthcare needs today. Please realize that you were seen in the Emergency Department and that we are providing you with an emergency medical screening exam and this may not be a complete and all inclusive of all the testing and or medical work-up that you may need to determine your ailment or severity of your illness. It is very important that you follow-up as instructed with your Primary care provider or Specialist for additional evaluation and to discuss your medical treatment plan. You may return to the Emergency Department should you have concerns or if your condition changes or worsens in any way. Coding Level of Care Code ED Logistics Planner for Jose Luis Whittaker
[2023-07-10 20:34] VITALS: BP 185/93; PULSE 77; RESP 18; TEMP 36.7; O2SAT 97
== END 2023-07-10 20:35 | disposition home or self-care (01) ==
PROVIDERS: Emergency Provider Internal Medicine; PCP Family Medicine Adult Medicine
DX: S29.011A Strain of muscle and tendon of front wall of thorax, initial encounter (principal); Z79.01 Long term (current) use of anticoagulants; I10 Essential (primary) hypertension; X50.0XXA Overexertion from strenuous movement or load, initial encounter
CPT/HCPCS: 71045; 99284

== ENCOUNTER 2023-08-17 08:16 | Outpatient (CLI) | payer MEDICAID, SELFPAY ==
--- NOTE | 2023-08-17 08:30 | USCV_ITS ---
[facility] Age: 33 Gender: M : 1990 Exam Date: 08/17/2023 08:28 Ordering Phys: Rachel Butler MD ([email or web address]) Technologist: CT Exam Location: [facility] [place] Indication: murmur BP: / HR: 45 Rhythm: Sinus Technical Quality: Adequate MEASUREMENTS (Male / Female) Normal Values 2D ECHO LVOT Diameter 2.4 cm LV Ejection Fraction MOD 2C 46.1 % LV Ejection Fraction 2C AL 43.7 % LA Diameter 5.5 cm Aorta at Sinotubular Diameter 2.9 cm M-MODE Aortic Annulus Diameter 3.4 cm LA Ao Ratio MM 1.8 MV E Point Septal Separation 0.1 cm DOPPLER AV Peak Velocity 157.0 cm/s LVOT Peak Velocity 127.0 cm/s AV Area Cont Eq vti 4.0 cm squared AV Area Cont Eq pk 3.7 cm squared MV Area PHT 3.6 cm squared Mitral E to A Ratio 2.3 MV E' Velocity 59.5 cm/s Mitral E to MV E' Ratio 15.6 Mitral E to LV E' Lateral Ratio 14.2 Mitral E to LV E' Septal Ratio 17.6 TR Peak Velocity 209.7 cm/s TR Peak Gradient 17.6 mmHg TV Peak E Velocity 85.0 cm/s Right Atrial Pressure 3.0 mmHg Pulmonary Artery Systolic Pressu 20.6 mmHg PV Peak Velocity 111.0 cm/s FINDINGS Left Ventricle Moderate diffuse hypokinesis of the septum and the anteroseptal segments. LV ejection fraction on 45%.Grade III/IV diastolic dysfunction (restrictive filling pattern), severely elevated filling pressures. Right Ventricle Normal right ventricular size. Normal ejection fraction Right Atrium Normal right atrial size. Left Atrium Mildly increased left atrial size. Mitral Valve No gross abnormalities noted Aortic Valve The leaflets could not be visualized well Tricuspid Valve No gross abnormalities noted Pulmonic Valve Pulmonic valve not well visualized. Pericardium Normal pericardium without effusion. Aorta Normal aortic root size. IVC Inferior vena cava not visualized. CONCLUSIONS Moderate diffuse hypokinesis of the septum and the anteroseptal segments. LV ejection fraction on 45%.Grade III/IV diastolic dysfunction (restrictive filling pattern), severely elevated filling pressures. Mildly increased left atrial size. There is no pericardial effusion. There are no intracardiac masses. Compared to the study from 03/30/2021, the LV ejection fraction has decreased. The wall motion abnormalities appear to be new Dr Rachel Butler MD [facility] (Electronically Signed) Final Date: 21 August 2023 19:29 S
== END 2023-08-17 08:17 | disposition home or self-care (01) ==
LOC: RAD 08:16
PROVIDERS: PCP Family Medicine Adult Medicine; Visit Provider Internal Medicine Cardiovascular Disease
DX: R06.09 Other forms of dyspnea (principal); I51.7 Cardiomegaly
CPT/HCPCS: 93306

== ENCOUNTER 2023-10-01 07:28 | Outpatient (CLI) | payer MEDICAID, SELFPAY ==
[2023-10-01 07:57] LABS: Basophils # 0.1 10^3/uL (0.0-0.1); Basophils % 1.3 %; Eosinophils # 0.2 10^3/uL (0.0-0.8); Eosinophils % 3.5 %; Hematocrit 44.8 % (37-53); Lymphocytes # 2.6 10^3/uL (0.8-4.8); Lymphocytes % 48.1 %; Mean Corpuscular Hemoglobin 25.8 pg (27-33); Mean Corpuscular Volume 78.2 fl (82-101); Mean Platelet Volume 9.7 fL (7.4-10.4); Monocytes # 0.5 10^3/uL (0.2-0.9); Monocytes % 8.7 %; Neutrophils # 2.06 10^3/uL (1.8-7.7); Neutrophils % 38.2 %; Nucleated Red Blood Cells % 0 %; Platelet Count 215 10^3/cmm (157-399); Red Blood Count 5.73 10^6/uL (3.85-5.65); Red Cell Distribution Width 15.2 % (12.1-15.1)
[2023-10-01 09:20] LABS: Blood Urea Nitrogen 14 mg/dL (6-20); Calcium 9.3 mg/dL (8.5-10.5); Carbon Dioxide 23 mmol/L (22-29); Chloride 101 mmol/L (98-107); Glomerular Filtration Rate 97.2 mL/min (90-130); Glucose 118 mg/dL (65-115); Osmolality Calculated 284 mOsm/kg (285-295); Sodium 136 mmol/L (136-145); Thyroid Stimulating Hormone 1.97 uIU/mL (0.27-4.20)
== END 2023-10-01 07:29 | disposition home or self-care (01) ==
LOC: LAB 07:28
PROVIDERS: PCP Family Medicine Adult Medicine; Visit Provider Internal Medicine Cardiovascular Disease
DX: R53.83 Other fatigue (principal)
CPT/HCPCS: 36415; 80048; 84443; 85025

== ENCOUNTER 2023-11-15 07:48 | Outpatient (CLI) | payer MEDICAID, SELFPAY ==
--- NOTE | 2023-11-15 | ECG_ITS ---
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 Interpretive Statements NAME OF STUDY: LEXISCAN SESTAMIBI STRESS TEST INDICATION: Abnormal Echo PROCEDURE: At the baseline, the EKG revealed normal sinus rhythm with poor R wave progression. Left axis deviation. Nonspecific T wave changes. The baseline heart was 66 bpm with a blood pressue of 142/100 mm of Hg Lexiscan was infused over a period of 20 seconds. A total of 0.4 milligrams of Lexiscan was infused. The stress phase was continued for a total of 5 minutes. Heart rate at the end of the stress phase was 72 bpm with a blood pressure 135/86 mm of Hg. The EKG at the peak infusion revealed no significant changes. Sestamibi was injected 20 seconds after the Lexiscan infusion. Heart rate at the end of the recovery phase was 60 bpm with a blood pressure of 141/87 mm of Hg. CONCLUSION: 1. No significant EKG changes with the LexiScan infusion 2. No LexiScan induced chest pain or cardiac arrhythmia 3. Normal blood pressure and heart rate response 4. Sestamibi/sestamibi perfusion scan pending; see separate report. Electronically Signed On 11-26-2023 9:06:11 CDT by Rachel Butler M.D. [id number]
[2023-11-15 07:50] VITALS: BMI 43.1
--- NOTE | 2023-11-15 07:54 | NMCV_ITS ---
NM christiano perf SPECT r/s* [id number] [facility] Age: 33 Gender: M : 1990 Exam Date: 11/15/2023 08:42 Ordering Phys: Rachel Butler MD ([email or web address]) Technologist: ZACKARY Alarcon Exam Location: [facility] Indications: AFIB STRESS TEST [facility] IMAGE PROTOCOL Rest/Stress 1 Lexiscan Day Radiopharmaceutical Dose (mCi) Administration Site Administered by Rest: Tc-99m 10.6 IV ZACKARY Lott Sestamibi Stress:Tc-99m 33.0 IV ZACKARY Lott Sestamibi Rest: 15-Nov-2023 60 Discovery 630 Stress: 15-Nov-2023 30 Discovery 630 0.4mg Lexiscan. Supine position only as patient was unable to lay prone. SPECT RESULTS Technical Quality: Excellent Raw Data Analysis: Normal Image Corrections: No attenuation or motion correction applied Summed Stress Score: 10 Summed Rest Score: 2 Summed Difference Score: 8 PERFUSION FINDINGS Moderate area of moderately decreased tracer uptake was noted in the basal and mid anterolateral, inferolateral, apical lateral and LV apex. Some reversibility was noted especially in the apical region FUNCTIONAL RESULTS (calculated via Gated SPECT) Stress Image LV EF (%): 59 Stress EDV (mL):211 TID: 1.08 Stress ESV (mL):87 FUNCTIONAL FINDINGS: Segmental wall motion analysis revealed no gross wall motion abnormalities. IMPRESSIONS 1. Myocardial perfusion imaging revealing moderate area of moderately decreased tracer uptake involving the inferolateral, anterolateral and apical regions with some reversibility suggesting myocardial scarring in the distribution of the left circumflex artery with small areas of primitivo-infarction ischemia 2. Normal LV ejection fraction of 59%. 3. LV wall motion analysis revealing no gross wall motion abnormalities. 4. Mildly dilated LV cavity with end-systolic volume of 87ml. No similar previous studies are available for comparison Dr Rachel Butler MD FAC (Electronically Signed) Final Date: 15 November 2023 22:37 S
[2023-11-15] MEDS: regadenoson 0.4 Mg/5 ml Syringe 0.400000000000000022 MG IVP (09:26)
[2023-11-15 09:43] VITALS: BP 163/82; PULSE 62
== END 2023-11-15 07:49 | disposition home or self-care (01) ==
LOC: CDL 07:49
PROVIDERS: PCP Family Medicine Adult Medicine; Visit Provider Internal Medicine Cardiovascular Disease
DX: I48.0 Paroxysmal atrial fibrillation (principal)
CPT/HCPCS: 36415; 78452; 93017; 96374; A9500; J2785

== ENCOUNTER → 2024-02-13 17:03 | Outpatient (CLI) | payer MEDICAID, SELFPAY ==
--- NOTE | 2024-02-13 17:15 | CTR_ITS ---
PROCEDURE INFORMATION: Exam: CTA Chest With Contrast Exam date and time: 02/13/2024 5:13 PM Age: 33 years old Clinical indication: Condition or disease; Other: Coarctation aorta; Prior surgery; Surgery date: 1-6 months; Surgery type: Open heart TECHNIQUE: Imaging protocol: Computed tomographic angiography of the chest with contrast. Exam focused on the arteries. 3D rendering (Not supervised by radiologist): MIP and/or 3D reconstructed images were created by the technologist. Radiation optimization: All CT scans at this facility use at least one of these dose optimization techniques: automated exposure control; mA and/or kV adjustment per patient size (includes targeted exams where dose is matched to clinical indication); or iterative reconstruction. Contrast material: OMNI 350; Contrast volume: 100 ml; Contrast route: INTRAVENOUS (IV); COMPARISON: CT angio chest [id number] 09/29/2021 4:11 PM RADIATION DOSE METRICS: Total DLP (mGy-cm): 1209.94 FINDINGS: Overall heart size is grossly stable. Findings of left ventricular hypertrophy are demonstrated, and there is some asymmetric septal hypertrophy. No definite coronary artery calcification, within the limits of the examination. There is trace pericardial calcification adjacent to the right atrium. Since the previous study, a shunt has been performed from the right lateral aspect of the proximal ascending aorta, coursing inferiorly, between the heart and esophagus, anastomosing to the anterior aspect of the descending aorta. This shunt measures 2.9 cm in diameter . There is a web-like protrusion into the shunt (series 9, image 122, series 10, image 124 and series 6, image 61 producing short segment luminal narrowing, estimated at approximately 60% of the cross-sectional area. Tortuosity and narrowing of the proximal descending aorta appears to have progressed from previous with appearance of a web-like kink in the proximal aorta (series 10, image 94) which narrows the aortic lumen to approximately 6 mm, with post stenotic dilatation of 32 mm. Precontrast images demonstrate no atherosclerotic calcification of the aorta. The brachiocephalic artery is enlarged measuring 3.0 x 2.2 cm (series 6, image 23) as compared with 2.7 x 2.2 cm previously. There is stable enlargement of the left subclavian artery at 2.2 cm diameter. The previously demonstrated paraspinous collaterals are less prominent currently. A 6 mm diameter vessel arising from the posteromedial aspect of the descending aorta at the level of the coarctation (series 6, image 46) appears to have decreased from 11 mm diameter on the prior study; this vessel is thought to represent a proximally dilated paraspinous collateral. An additional 5 mm focal prominence along the anteromedial wall of the mid descending aorta (series 6, image 57) appears stable from previous and appears to represent a prominent vascular origin. There is limited pulmonary venous opacification secondary to contrast bolus timing, but precluding any assessment for pulmonary embolus. The main pulmonary artery measures 32 mm diameter which is similar to previous. No mediastinal or hilar adenopathy identified. Limited pulmonary vascular opacification limits assessment for hilar adenopathy. Imaged portions of the distal trachea as well as right and left mainstem bronchi are patent. There are new scattered bilateral predominantly linear pulmonary densities consistent with atelectasis and/or scarring. No edema or pneumonia identified. Other findings: Imaged portions of the upper abdomen demonstrate no acute abnormality. There is protuberance of the midline upper abdominal wall just below the xiphoid. Skeletal windows demonstrate findings of prior median sternotomy There is now mild elevation of the left hemidiaphragm. CT/CT angio chest [id number] IMPRESSION: 1. Since prior study, patient has undergone a stent from the ascending to descending thoracic aorta for aortic coarctation. There is a web-like narrowing of the stent, producing estimated 60% stenosis. 2. There is increased tortuosity at the coarctation site, with a almost 90 degree turn of the aortic lumen with stenosis of the lumen down to 6 mm diameter. This is difficult to compare on the prior study , due to the large number of arterial collaterals present in that region on the prior study. However, the collateral vessels have diminished substantially in size on the current study. 3. Dilatation of the proximal segment of two collaterals arising from the descending aorta, one such vessel is stable the other has decreased in size, further detailed above. 4. Newly demonstrated mild elevation of the left hemidiaphragm. Chest fluoroscopy may be considered to assess for evidence of phrenic nerve impairment. 5. Please see above additional comments.
[2024-02-13] MEDS: iohexol 350 mg/mL 500 mL Btl (per mL) IV (17:23)
== END | disposition home or self-care (01) ==
LOC: RAD 17:03
PROVIDERS: PCP Family Medicine Adult Medicine; Visit Provider Internal Medicine Cardiovascular Disease
DX: Z98.890 Other specified postprocedural states (principal); I51.7 Cardiomegaly; Q25.1 Coarctation of aorta
CPT/HCPCS: 71275; Q9967

== ENCOUNTER 2024-04-07 08:58 | Emergency (ER) | payer MEDICAID, SELFPAY ==
[2024-04-07 09:03] VITALS: BP 147/84; PULSE 57; RESP 18; TEMP 36.8; O2SAT 99
--- NOTE | 2024-04-07 09:07 | XRR_ITS ---
PROCEDURE INFORMATION: Exam: XR Left Finger(s) Exam date and time: 04/07/2024 9:16 AM Age: 33 years old Clinical indication: Injury or trauma; Other: Laceration; Left; Middle finger TECHNIQUE: Imaging protocol: Radiologic exam of the left fingers. Views: Minimum 2 views. COMPARISON: No relevant prior studies available. FINDINGS: Bones/joints: Normal. No acute osseous or joint abnormality. No radiopaque foreign material. Soft tissues: Normal. XR/XR finger LT min 2V [id number] IMPRESSION: No acute findings.
--- NOTE | 2024-04-07 09:13 | ED_ITS ---
HPI - Wound/Laceration General: Chief Complaint: Wound/Laceration Stated Complaint: Cut finger on left hand Time Seen by Provider: 04/07/24 08:59 Source: patient Mode of arrival: ambulatory Limitations: no limitations History of Present Illness: Patient is a nice 33-year-old male presents to ED today for a laceration to his left middle finger that he sustained just prior to arrival after cutting it on a corned beef can. Does not believe he has ever had a tetanus shot as he grew up in [place]. Onset (ago): hour(s) Extremity Location: Left: hand (L middle finger) Place: home Patient tetanus UTD: No Context: accidental Associated symptoms: Reports no associated symptoms Related Data Previous Rx's Medication Instructions Recorded Bipap, heated humidifer, and #1 ea 07/14/21 supplies. Auto-titrating CPAP & Supplies #1 ea 10/07/21 apixaban 5 mg tablet (Eliquis) See Rx Instructions .Route 01/08/24 .COMPLEX #60 tabs clonidine HCl 0.1 mg tablet See Rx Instructions .Route 01/08/24 .COMPLEX #60 tabs ketoconazole 2 % shampoo 1 applic topical DAILY dandruff 02/05/24 #120 mL magnesium oxide 400 mg (241.3 mg 400 mg PO BID #60 tabs 02/06/24 magnesium) tablet oxycodone 10 mg tablet 10 mg PO Q12H PRN pain 30 days #60 03/04/24 tabs potassium chloride 8 mEq 8 meq PO DAILY #90 tabs 03/04/24 tablet,extended release metoprolol succinate 50 mg 50 mg PO DAILY #90 tabs 04/04/24 tablet,extended release 24 hr Allergies Allergy/AdvReac Type Severity Reaction Status Date / Time furosemide Allergy Severe dizziness/edema/skin Verified 02/26/24 09:44 discoloration HCTZ Allergy Severe dizziness/edema/skin Uncoded 02/26/24 09:44 discoloration chlorthalidone AdvReac Severe dizziness/edema/skin Uncoded 02/26/24 09:44 discoloration Review of Systems Musc: Reports: extremity pain Skin/Breast: Reports: other (laceration L finger) Neuro: Denies: numbness in extremities or sensory changes PFS ED PFSH: Medical History Dental abscess Acute atopic conjunctivitis Coarctation of aorta Hypomagnesemia AURY treated with BiPAP Lumbar spondylosis Neuropathic pain, leg, bilateral History of seizures Chronic neck and back pain Obesity (BMI 35.0-39.9 without comorbidity) Cervical disc disease Hypertension Surgical History Status post aortic arch reconstruction S/P matrixectomy of toe S/P matrixectomy of toe S/P matrixectomy of toe History of back surgery Family History Other No pertinent family history Denies family history of Diabetes CAD (coronary artery disease) Clotting disorder Dementia Chronic kidney disease (CKD) Suicide Anesthesia complication Bleeding disorder Lung disease Cancer Stroke Social History Smoking and tobacco/nicotine status: never used tobacco/nicotine Second hand smoke exposure: No Alcohol intake: never Substance/Drug Use: never Caregiver/support person: Yes Lives independently: Yes Household members: spouse and family Marital status: Number of children: 3 Highest education level completed: Some College, No Degree service: No Current occupational status: unemployed and previously employed Pets and animals: No Do you think of yourself as: Straight/Heterosexual Current gender identity: Male Physical Exam Const: COMMON NORMALS: no acute distress, patient oriented x3, no limitations, alert and well nourished Extremity: COMMON NORMALS: full ROM and capillary refill normal GENERAL: Yes normal exam except as noted LEFT UPPER EXTREMITY: Yes hand & digits (1.25cm laceration palmar pad L middle finger) Left hand and digits: Yes ROM (normal) and Yes neurovascular exam (normal) Neuro: COMMON NORMALS: patient oriented x3, moves all extremities, no focal motor deficits and no sensory deficits noted SENSORIUM/ORIENTATION: Yes alert Skin: TRAUMA: laceration Procedures Laceration Laceration 1: Site: hand Side (If applicable): left (middle finger) Size (cm): 1.25 Description: linear Depth: simple, single layer Local Anesthetic: lidocaine 1% (digital block) Amount of anesthesia used (mL): 3.0 Pre-repair: wound explored and irrigated extensively Skin layer closed with: nylon Size (cm): 5-0 Number of sutures: 4 Technique: simple, interrupted Course Vital Signs: Vital signs: Vital Signs Temperature 98.2 F 04/07/24 09:03 Pulse Rate 57 L 04/07/24 09:03 Respiratory Rate 18 04/07/24 09:03 Blood Pressure 147/84 04/07/24 09:03 Pulse Oximetry 99 04/07/24 09:03 MDM - Wound/Laceration Medical Decision Making XR negative. Tetanus updated. Wound was copiously irrigated and repaired as documented. Suture care/suture removal/wound care precautions discussed. Differential Diagnosis Likely laceration Lab Data Radiology Impressions Finger X-Ray 04/07/24 09:07 IMPRESSION: No acute findings. All radiology interpretation(s) finalized by discharge Discharge Plan Discharge Patient Disposition: Home Clinical Impression: Laceration of left middle finger Qualifiers: Encounter type: initial encounter Damage to nail status: without damage Foreign body presence: without foreign body Qualified Code(s): S61.213A - Laceration without foreign body of left middle finger without damage to nail, initial encounter Condition: Stable Prescriptions: No Action (DME) Bipap, heated humidifer, and supplies. See Rx Instructions .Route .MEDSUPPLY Qty: 1 0RF Rx Instructions: As directed (DME) Auto-titrating CPAP & Supplies See Rx Instructions .Route .MEDSUPPLY Qty: 1 0RF Rx Instructions: As directed, Auto titrating range is 10-16 with the optimal pressure was 15. clonidine HCl 0.1 mg tablet See Rx Instructions .ROUTE .COMPLEX Qty: 60 5RF Dose Instruction: TAKE 1 TABLET BY MOUTH TWICE DAILY Rx Instructions: TAKE 1 TABLET BY MOUTH TWICE DAILY Eliquis 5 mg tablet See Rx Instructions .ROUTE .COMPLEX Qty: 60 5RF Dose Instruction: TAKE 1 TABLET BY MOUTH TWICE DAILY *need TO see doctor* Rx Instructions: TAKE 1 TABLET BY MOUTH TWICE DAILY *need TO see doctor* ketoconazole 2 % shampoo 1 applic topical DAILY Qty: 120 5RF Rx Instructions: apply to wet hair. Lather, soak into the scalp 5 min rinse use daily for two weeks magnesium oxide 400 mg (241.3 mg magnesium) tablet 400 mg PO BID Qty: 60 5RF potassium chloride 8 mEq tablet extended release 8 meq PO DAILY Qty: 90 1RF oxycodone 10 mg tablet 10 mg PO Q12H PRN (Reason: pain) 30 Days Qty: 60 0RF Rx Instructions: refill On or after 30 day intervals metoprolol succinate 50 mg tablet extended release 24 hr 50 mg PO DAILY Qty: 90 1RF Discharge Orders: Discharge ED (Routine); Ordered 04/07/24 Ordered By: Karissa Chavez Referrals: Chucky Velarde MD [Primary Care Provider] - Patient Instructions: Care For Your Stitches (DC), Finger Laceration (ED) Activity Restrictions/Additional Instructions: Keep wound/laceration clean with warm soap and water twice daily. Monitor for signs of infection such as redness, swelling, increased pain, or drainage. Please seek medical re-evaluation if these occur. If you received sutures today these will need to be removed (unless you were told by the provider that they are absorbable). The provider should have discussed with you the length of time until removal-7 DAYS. Coding Level of Care Code ED Network Support Technician for Jose Luis Whittaker
[2024-04-07] MEDS: tetanus-dipt-pertussis 0.5 mL SDV IM (09:54)
[2024-04-07 10:03] VITALS: BP 155/102; PULSE 58; RESP 16; O2SAT 99
== END 2024-04-07 10:05 | disposition home or self-care (01) ==
PROVIDERS: Emergency Provider Physician Assistant; PCP Family Medicine Adult Medicine
DX: S61.213A Laceration without foreign body of left middle finger without damage to nail, initial encounter (principal); I10 Essential (primary) hypertension; Z79.01 Long term (current) use of anticoagulants; W26.8XXA Contact with other sharp object(s), not elsewhere classified, initial encounter; Z23 Encounter for immunization
CPT/HCPCS: 12001; 73140; 90471; 90715; 99283

== ENCOUNTER 2024-05-30 10:11 | Outpatient (CLI) | payer MEDICAID, SELFPAY ==
--- NOTE | 2024-05-30 10:15 | XR_ITS ---
WS: [id number] Exam: XR chest 2V* [id number] Date/Time of Exam: 05/30/2024 10:20 AM Reason For Exam: ACUTE COUGH Comparison 12/30/2021. The lungs are fully expanded and clear. The heart is enlarged. There is elevation of the cardiac apex . Signs of previous cardiac surgery and median sternotomy. Bony structures are intact. Altered contou r of the thoracic aorta. This likely is secondary to congenital heart disease. These findings might b e seen with transposition of the great vessels. XR/XR chest 2V* [id number] IMPRESSION: 1. No acute cardiopulmonary finding. 2. Findings of congenital heart disease and postoperative changes as detailed laly goldman.
== END 2024-05-30 10:12 | disposition home or self-care (01) ==
LOC: RAD 10:13
PROVIDERS: PCP Family Medicine Adult Medicine; Visit Provider Nurse Practitioner Family
DX: R05.1 Acute cough (principal); I51.7 Cardiomegaly
CPT/HCPCS: 71046

== ENCOUNTER 2024-06-18 08:11 | Outpatient (CLI) | payer MEDICAID, SELFPAY ==
[2024-06-18 08:35] VITALS: PULSE 81; RESP 18; O2SAT 97
[2024-06-18] MEDS: albuterol 2.5 mg/3 mL Neb INHALATION (08:35)
[2024-06-18 08:40] VITALS: PULSE 74
== END 2024-06-18 08:12 | disposition home or self-care (01) ==
PROVIDERS: PCP Family Medicine Adult Medicine; Visit Provider Nurse Practitioner Family
DX: R06.02 Shortness of breath (principal); R05.1 Acute cough; R94.2 Abnormal results of pulmonary function studies
CPT/HCPCS: 94060

== ENCOUNTER 2024-06-23 22:55 | Emergency (ER) | payer MEDICAID, SELFPAY ==
[2024-06-23 23:20] VITALS: BP 191/99; PULSE 85; RESP 18; TEMP 37.2; O2SAT 95
[2024-06-24] VITALS (10 sets, daily range): BP systolic 145–210; BP diastolic 74–129; PULSE 77–91; RESP 17; O2SAT 92–97
--- NOTE | 2024-06-24 01:47 | CTR_ITS ---
PROCEDURE INFORMATION: Exam: CT Neck With Contrast Exam date and time: 06/24/2024 2:09 AM Age: 34 years old Clinical indication: Other: Food seems lodged; Additional info: Possible lodged food bolus TECHNIQUE: Imaging protocol: Computed tomography of the neck with contrast. Radiation optimization: All CT scans at this facility use at least one of these dose optimization techniques: automated exposure control; mA and/or kV adjustment per patient size (includes targeted exams where dose is matched to clinical indication); or iterative reconstruction. Contrast material: OMNI 350; Contrast volume: 100 ml; Contrast route: INTRAVENOUS (IV); COMPARISON: MR cervical spin wo con* [id number] 07/22/2020 4:15 PM RADIATION DOSE METRICS: Total DLP (mGy-cm): 482.39 FINDINGS: Salivary glands: Normal. Glands are normal in size. Pharynx: There is soft tissue fullness noted in the roof of the nasopharynx. Please correlate clinically and with direct visualization. Symmetric prominence of the palatine tonsils is noted without evidence for necrosis or enhancing mass. Prevertebral and retropharyngeal spaces: Unremarkable. Larynx: Unremarkable. Epiglottis is normal. Thyroid: Normal. No enlarged or calcified nodules. Trachea: Visualized trachea is unremarkable. Lungs: Unremarkable as visualized. Lymph nodes: Unremarkable. No lymphadenopathy. Bones/joints: Unremarkable. No acute fracture. Soft tissues: Unremarkable. No significant soft tissue swelling. CT/CT neck w con* [id number] IMPRESSION: No no evidence for foreign body along the aerodigestive tract in the neck. Soft tissue fullness in the adenoids and palatine tonsils requiring clinical correlation and correlation with physical examination/direct visualization.
--- NOTE | 2024-06-24 02:17 | W.ED.GENADLT ---
HPI - General Adult General: Chief complaint: Airway/Esophagus Foreign Body Stated complaint: Food stuck in throat Time Seen by Provider: 06/24/24 01:41 History of Present Illness: Patient comes to the ER with the thought that he has something stuck in his throat. Patient states he was not eating anything that happened. But now he is unable to swallow due to the pain. He reports it feels like a fishbone is stuck in his throat sharp stabbing in nature patient has also had URI symptoms for the last month. Patient is able to swallow his own secretions however his notably salivating a lot more than normal. In he is notably anxious and his blood pressure is elevated. Patient is never had anything like this before. Related Data Previous Rx's Medication Instructions Recorded Bipap, heated humidifer, and #1 ea 07/14/21 supplies. Auto-titrating CPAP & Supplies #1 ea 10/07/21 apixaban 5 mg tablet (Eliquis) See Rx Instructions .Route 01/08/24 .COMPLEX #60 tabs clonidine HCl 0.1 mg tablet See Rx Instructions .Route 01/08/24 .COMPLEX #60 tabs ketoconazole 2 % shampoo 1 applic topical DAILY dandruff 02/05/24 #120 mL magnesium oxide 400 mg (241.3 mg 400 mg PO BID #60 tabs 02/06/24 magnesium) tablet potassium chloride 8 mEq 8 meq PO DAILY #90 tabs 03/04/24 tablet,extended release metoprolol succinate 50 mg 50 mg PO DAILY #90 tabs 04/04/24 tablet,extended release 24 hr albuterol sulfate 90 mcg/actuation 1 inh inhalation QID PRN shortness 05/27/24 aerosol inhaler of breath or wheezing 7 days #6.7 grams promethazine-DM 6.25 mg-15 mg/5 mL 5 ml PO Q6H PRN cough #118 mL 05/27/24 oral syrup oxycodone 10 mg tablet 10 mg PO Q12H PRN pain 30 days #60 06/12/24 tabs prednisone 50 mg tablet 50 mg PO DAILY #5 tabs 06/24/24 Allergies Allergy/AdvReac Type Severity Reaction Status Date / Time furosemide Allergy Severe dizziness/edema/skin Verified 06/23/24 23:26 discoloration hydrochlorothiazide Allergy Severe dizziness/edema/skin Verified 06/23/24 23:26 discoloration chlorthalidone AdvReac Severe dizziness/edema/skin Verified 06/23/24 23:26 discoloration Review of Systems General: Reports: 10 or more systems reviewed and unremarkable except in HPI and below PFSH ED PFSH: Medical History Dental abscess Acute atopic conjunctivitis Coarctation of aorta Hypomagnesemia AURY treated with BiPAP Lumbar spondylosis Neuropathic pain, leg, bilateral History of seizures Chronic neck and back pain Obesity (BMI 35.0-39.9 without comorbidity) Cervical disc disease Hypertension Surgical History Status post aortic arch reconstruction S/P matrixectomy of toe S/P matrixectomy of toe S/P matrixectomy of toe History of back surgery Family History Other No pertinent family history Denies family history of Diabetes CAD (coronary artery disease) Clotting disorder Dementia Chronic kidney disease (CKD) Suicide Anesthesia complication Bleeding disorder Lung disease Cancer Stroke Social History Smoking and tobacco/nicotine status: unknown if used tobacco/nicotine Second hand smoke exposure: No Alcohol intake: never Substance/Drug Use: never Caregiver/support person: Yes Lives independently: Yes Household members: spouse and family Marital status: Number of children: 3 Highest education level completed: Some College, No Degree service: No Current occupational status: unemployed and previously employed Pets and animals: No Do you think of yourself as: Straight/Heterosexual Current gender identity: Male Physical Exam Const: COMMON NORMALS: no acute distress, average body habitus, patient oriented x3, no limitations, healthy appearing, alert and well nourished HENMT: COMMON NORMALS: normocephalic, atraumatic, hearing grossly normal bilaterally, external ears normal, Normal external nose present and moist oral mucous membranes HEAD & SCALP: normocephalic and atraumatic NOSE: Normal external nose present EXTERNAL EAR: Yes external ears normal Neck/C-Spine: COMMON NORMALS: full ROM, no lymphadenopathy, supple, no meningeal signs, no JVD and Thyroid normal THYROID: Thyroid normal Chest: COMMONS NORMALS: normal inspection of the chest and normal palpation of entire chest wall Resp: COMMON NORMALS: normal respiratory effort, No retractions, No use of accessory muscles and clear to auscultation bilaterally AUSCULTATION: clear to auscultation bilaterally Cardio: COMMON NORMALS: no JVD, regular rate, regular rhythm, S1 normal heart sound present, S2 normal heart sound present, No gallops present (Cardio), No clicks present (Cardio), No murmurs present (Cardio) and No rub (Cardio) RATE: regular rate RHYTHM: regular rhythm HEART SOUNDS: S1 normal heart sound present and S2 normal heart sound present GI: COMMON NORMALS: Normal to inspection, nondistended, normoactive bowel sounds present, Soft to palpation, non-tender, No hepatosplenomegaly present and no masses PALPATION: Yes Soft to palpation and Yes No hepatosplenomegaly present Neuro: COMMON NORMALS: patient oriented x3 SENSORIUM/ORIENTATION: Yes alert MENINGEAL SIGNS: Yes no meningeal signs Course Vital Signs: Vital signs: Vital Signs Temperature 98.9 F 06/23/24 23:20 Pulse Rate 90 06/24/24 04:00 Respiratory Rate 18 06/23/24 23:20 Blood Pressure 170/93 06/24/24 04:00 Pulse Oximetry 96 06/24/24 04:00 Oxygen Delivery Me thod Room Air 06/24/24 03:30 [facility] - General Adult Medical Decision Making Patient CT scan of his neck which showed no evidence foreign body along the aerodigestive tract, patient's blood pressure was elevated he was given clonidine 0.2 mg, 20 mg of hydralazine, 1 mg Ativan, 125 mg Solu-Medrol, and this lowered his blood pressure. Patient be discharged home on a dose of prednisone. Medical Records I reviewed the patient's medical records. Lab Data I reviewed the patient's lab results. Radiology Impressions Neck CT 06/24/24 01:47 IMPRESSION: No no evidence for foreign body along the aerodigestive tract in the neck. Soft tissue fullness in the adenoids and palatine tonsils requiring clinical correlation and correlation with physical examination/direct visualization. Laboratory Results Group A Strep Rapid Negative (Negative) 06/24/24 04:04 All radiology interpretation(s) finalized by discharge Discharge Plan Discharge Patient Disposition: Home Clinical Impression: Pharyngitis Qualifiers: Pharyngitis/tonsillitis etiology: unspecified etiology Qualified Code(s): J02.9 - Acute pharyngitis, unspecified Condition: Stable Prescriptions: New prednisone 50 mg tablet 50 mg PO DAILY Qty: 5 0RF No Action promethazine-DM 6.25-15 mg/5 mL syrup 5 ml PO Q6H PRN (Reason: cough) Qty: 118 0RF albuterol sulfate 90 mcg/actuation HFA aerosol inhaler 1 inh inhalation QID PRN (Reason: shortness of breath or wheezing) 7 Days Qty: 6.7 0RF (DME) Bipap, heated humidifer, and supplies. See Rx Instructions .Route .MEDSUPPLY Qty: 1 0RF Rx Instructions: As directed (DME) Auto-titrating CPAP & Supplies See Rx Instructions .Route .MEDSUPPLY Qty: 1 0RF Rx Instructions: As directed, Auto titrating range is 10-16 with the optimal pressure was 15. clonidine HCl 0.1 mg tablet See Rx Instructions .ROUTE .COMPLEX Qty: 60 5RF Dose Instruction: TAKE 1 TABLET BY MOUTH TWICE DAILY Rx Instructions: TAKE 1 TABLET BY MOUTH TWICE DAILY Eliquis 5 mg tablet See Rx Instructions .ROUTE .COMPLEX Qty: 60 5RF Dose Instruction: TAKE 1 TABLET BY MOUTH TWICE DAILY *need TO see doctor* Rx Instructions: TAKE 1 TABLET BY MOUTH TWICE DAILY *need TO see doctor* ketoconazole 2 % shampoo 1 applic topical DAILY Qty: 120 5RF Rx Instructions: apply to wet hair. Lather, soak into the scalp 5 min rinse use daily for two weeks magnesium oxide 400 mg (241.3 mg magnesium) tablet 400 mg PO BID Qty: 60 5RF potassium chloride 8 mEq tablet extended release 8 meq PO DAILY Qty: 90 1RF metoprolol succinate 50 mg tablet extended release 24 hr 50 mg PO DAILY Qty: 90 1RF oxycodone 10 mg tablet 10 mg PO Q12H PRN (Reason: pain) 30 Days Qty: 60 0RF Rx Instructions: refill On or after 30 day intervals Discharge Orders: Discharge ED (Routine); Ordered 06/24/24 Ordered By: Yury Rosario Referrals: Chucky Velarde MD [Primary Care Provider] - 1 week Patient Instructions: Pharyngitis (ED) Activity Restrictions/Additional Instructions: A prescription for prednisone has been sent to your pharmacy. Please pick it up and take it as directed. Thank you for choosing [facility] for your healthcare needs today. Please realize that you were seen in the emergency department and that we are providing you with an emergency medical screening exam and this may not be a complete and all exclusive of all testing and/or medical workup we may need to determine your element or severity of your illness. It is very important that you follow-up as instructed with your primary care provider or specialist for the additional evaluation and to discuss your medical treatment plan. You may return to the emergency department should you have concerns or if your condition changes or worsens in any way. Coding Level of Care Code ED Car Inspection And Repair Manager for Jose Luis Whittaker
[2024-06-24] MEDS: iohexol 350 mg/mL 500 mL Btl (per mL) IV (02:25)
[2024-06-24] MEDS: hyDRALAzine 20 mg/mL INJ 1 mL IVP (02:47)
[2024-06-24] MEDS: cloNIDine 0.1 mg Tablet 0.2 MG PO (03:22)
[2024-06-24] MEDS: methylPREDNISolone sod succ 125 mg/2 mL INJ IVP (03:52)
[2024-06-24] MEDS: LORazepam 1 mg Tablet PO (04:10)
[2024-06-24 04:17] LABS: Rapid Strep A Test Negative (Negative)
== END 2024-06-24 05:00 | disposition home or self-care (01) ==
PROVIDERS: Emergency Provider Emergency Medicine; PCP Family Medicine Adult Medicine
DX: J02.9 Acute pharyngitis, unspecified (principal); Z79.01 Long term (current) use of anticoagulants; I10 Essential (primary) hypertension
CPT/HCPCS: 70491; 87081; 87880; 96374; 96375; 99285; J0360; J2919

== ENCOUNTER 2024-09-30 08:49 | Outpatient (CLI) | payer MEDICAID, SELFPAY ==
[2024-09-30 09:13] VITALS: PULSE 65; RESP 18; O2SAT 98
[2024-09-30] MEDS: albuterol 2.5 mg/3 mL Neb INHALATION (09:14)
[2024-09-30 09:17] VITALS: PULSE 77
--- NOTE | 2024-09-30 09:40 | CTR_ITS ---
PROCEDURE INFORMATION: Exam: CT Chest Without Contrast; Diagnostic Exam date and time: 09/30/2024 10:06 AM Age: 34 years old Clinical indication: Shortness of breath; Prior surgery; Surgery date: 6+ months; Surgery type: Heart; Additional info: Shortness of breath, obstructive sleep apnea TECHNIQUE: Imaging protocol: Diagnostic computed tomography of the chest without contrast. Radiation optimization: All CT scans at this facility use at least one of these dose optimization techniques: automated exposure control; mA and/or kV adjustment per patient size (includes targeted exams where dose is matched to clinical indication); or iterative reconstruction. COMPARISON: CT angio chest [id number] 02/13/2024 5:13 PM RADIATION DOSE METRICS: Total DLP (mGy-cm): 936.21 FINDINGS: Limitations: This study is limited without the use of IV contrast, particularly for the evaluation of infection and malignancy. Lungs: No focal lung consolidation. Mild bibasilar atelectasis/scar. Pleural spaces: No pneumothorax. No pleural effusion. Heart: No cardiomegaly. No pericardial effusion. Coronary arteries: No coronary artery calcification. Mediastinal space: The visualized trachea and esophagus are unremarkable in appearance. Lymph nodes: No mediastinal lymphadenopathy. Evaluation of the johny limited without the use of IV contrast. No axillary lymphadenopathy. Vasculature: Redemonstration of coarctation of the proximal descending thoracic aorta. Redemonstration of a thoracic aortic bypass graft better assessed on prior CT angiogram. Bones/joints: No acute bony abnormality. Soft tissues: Upper abdominal diastasis recti. CT/CT chest con [id number] IMPRESSION: 1. No focal lung consolidation. 2. Redemonstration of thoracic aortic bypass for aortic coarctation incompletely assessed on this noncontrast study. This may be further assessed with CT angiogram if clinically warranted.
== END 2024-09-30 08:50 | disposition home or self-care (01) ==
LOC: RT 08:50
PROVIDERS: PCP Family Medicine; Visit Provider Physician Assistant Medical
DX: R06.02 Shortness of breath (principal); G47.33 Obstructive sleep apnea (adult) (pediatric); R91.8 Other nonspecific abnormal finding of lung field; J98.11 Atelectasis; R93.5 Abnormal findings on diagnostic imaging of other abdominal regions, including retroperitoneum; M62.08 Separation of muscle (nontraumatic), other site
CPT/HCPCS: 71250; 94060; 94726; 94729; J7613

== ENCOUNTER → 2025-04-22 14:08 | Outpatient (BNVA) | payer MEDICAID, SELFPAY | PROVIDERS: PCP Family Medicine; Visit Provider Family Medicine | DX: Z13.6 Encounter for screening for cardiovascular disorders (principal) | CPT/HCPCS: 80053; 80061; 84439; 84443; 85025 ==

== ENCOUNTER 2025-08-05 11:48 | Outpatient (CLI) | payer MEDICAID, SELFPAY ==
--- NOTE | 2025-08-05 12:00 | CT_ITS ---
WS: [id number] CTA THORACIC TECHNIQUE: Contrast enhanced CTA of the thoracic aorta with coronal and sagittal reformatted images and maximum intensity projection (MIP) images. CLINICAL INFORMATION: coarctation of aorta, hx of graft COMPARISON: CTA 02/13/2024 DLP: 1516.[address] scans at [facility] use at least one of these dose optimization techniques: automated exposure control; mA and/or kV adjustment per patient size (includes targeted exams where dose is matched to clinical indication); or iterative reconstruction. FINDINGS: Previously described vascular graft from the RIGHT proximal ascending aorta to the descending aorta is unchanged in appearance. Vascular graft appears patent. Again seen is a weblike narrowing of the proximal graft unchanged from previous measuring approximately 58%. Great vessels are patent. Proximal subclavian arteries are patent. Both common carotid arteries are patent. The innominate is patent. Paraspinal collaterals have decreased in size compared to the initial preoperative study. There is mild narrowing at the distal aspect of the graft at the junction to the descending aorta which is unchanged in appearance. No flow-limiting stenosis. Postoperative changes sternotomy with mediastinal clips. No mediastinal or hilar lymphadenopathy. Adrenal glands are normal. Fatty atrophy of the pancreas. Celiac and SMA are patent. Proximal renal arteries are patent. Small esophageal hiatal hernia. Mild thoracic kyphosis. CT/CT angio chest [id number] IMPRESSION: 1. Stable vascular graft for aortic coarctation repair described above. Again seen is weblike narrowing involving the proximal graft measuring approximately 58% unchanged 2. Great vessels are patent proximally unchanged in appearance compared to pre vious. 3. Stable appearance of the coarctation site with luminal stenosis measuring 5 to 6 mm. 4. Interval improvement in the collateral vessels compared to the original hema dy. 5. No other acute findings.
[2025-08-05] MEDS: iohexol 350 mg/mL 500 mL Btl (per mL) IV (12:36)
== END 2025-08-05 11:49 | disposition home or self-care (01) ==
LOC: RAD 11:49
PROVIDERS: PCP Family Medicine; Visit Provider Nurse Practitioner Family
DX: Z98.890 Other specified postprocedural states (principal); M48.061 Spinal stenosis, lumbar region without neurogenic claudication; K86.89 Other specified diseases of pancreas; K44.9 Diaphragmatic hernia without obstruction or gangrene; M40.204 Unspecified kyphosis, thoracic region
CPT/HCPCS: 71275